=== PATIENT | male | born 1980 | race Caucasian/White ===

== ENCOUNTER 2017-10-14 11:34 | Observation (INO) | payer BC, SELFPAY ==
[2017-10-14 12:08] LABS: #Lymphocytes 0.5 thou/uL (1.20-3.40); #Monocytes 0.8 thou/uL (0.11-0.59); #Neutrophils 14.5 thou/uL (1.40-6.50); %Basophils 0.3 % (0.0-1.0); %Eosinophils 0.2 % (0.0-10.0); %Lymphocytes 3.1 % (21.0-51.0); %Monocytes 5.1 % (0.0-10.0); %Neutrophils 91.4 % (42.0-75.0); Hemoglobin 15.1 g/dL (14.0-18.0); Mean Corpuscular HGB CONC 33.7 g/dL (32.0-36.0); Mean Corpuscular Hemoglobin 32.5 pg (27.0-31.0); Mean Corpuscular Volume 96.4 fl (80.0-94.0); Mean Platelet Volume 8.5 fL (7.4-10.4); Platelet Count 218 thou/uL (130-400); RBC Distribution Width 11.7 % (11.5-14.5); Red Blood Cell (RBC) Count 4.64 mill/uL (4.70-6.10); White Blood Cell (WBC) Count 15.9 thou/uL (4.8-10.8)
[2017-10-14] MEDS ORDERED: Lorazepam 2 MG/ML VIAL ONE (12:18)
[2017-10-14 12:30] LABS: ALT (SGPT) 33 U/L (8-55); AST (SGOT) 24 U/L (5-34); Acetaminophen Less than 6.0 mcg/mL (10.0-30.0); Albumin 4.3 g/dL (3.5-5.0); Alcohol Less than 10 mg/dL (Less than 10); Alkaline Phosphatase 85 U/L (40-150); Anion Gap 19 mmol/L (10-20); BUN (Urea Nitrogen) 9 mg/dL (8.9-20.6); Bilirubin, Total 0.4 mg/dL (0.2-1.2); CK (CPK) 153 U/L (30-200); Calc. Creatinine Clearance 0 mL/min (70-130); Calcium 9.5 mg/dL (7.8-10.44); Carbon Dioxide 15 mmol/L (22-29); Chloride 107 mmol/L (98-107); Estimated GFR-MDRD 38; Globulin 3.3 g/dL (2.4-3.5); Glucose 207 mg/dL (70-105); Potassium 3.5 mmol/L (3.5-5.1); Protein, Total 7.6 g/dL (6.0-8.3); Salicylate Less than 8.0 mg/dL (15.0-30.0); Sodium 137 mmol/L (136-145)
[2017-10-14 12:33] LABS: CKMB 1.1 ng/mL (0-6.6)
[2017-10-14 12:37] LABS: Bilirubin Negative (Negative); Blood, Urine Small (Negative); Clarity CLOUDY (Clear); Glucose, Urine (Dipstick) Negative (Negative); Leukocyte Small (Negative); Nitrite Negative (Negative); Protein, Urine (Dipstick) 100 mg/dL (Neg-Trace); Specific Gravity, Urine 1.018 (1.002-1.036); Urobilinogen 0.2 mg/dL (0.2-1.0); pH, Urine 5.5 (5.0-9.0)
[2017-10-14 12:39] LABS: Troponin I 0.022 ng/mL (< 0.028)
[2017-10-14 12:48] LABS: Pathc Cast-AUWi Flag 10.46 (0-2.49)
[2017-10-14 12:52] LABS: Cocaine Metabolite Screen Detected (NotDetected); Medtox Reader # READER 1; Phencyclidine (PCP) Detected (NotDetected); THC/Cannabinoid Screen Detected (NotDetected)
[2017-10-14 12:53] LABS: Amphetamine Not Detected (NotDetected); Barbiturates Screen Not Detected (NotDetected); Benzodiazepine Screen Not Detected (NotDetected); Medtox Control Line Valid? VALID (VALID); Methadone Not Detected (NotDetected); Methamphetamine Detected (NotDetected); Opiate Screen Not Detected (NotDetected); Oxycodone Screen Not Detected (NotDetected); Tricyclic Screen Not Detected (NotDetected)
[2017-10-14 12:59] LABS: Bacteria/HPF 2+ HPF (None Seen); Hyaline Casts/LPF 4-6 HYALINE CAST LPF (0-3 Hyaline); Manual Microscopic Reviewed? No Path Casts Seen; Renal Epithelial None Seen HPF (0-3); Transitional Epithelial NONE SEEN HPF (0-3)
--- NOTE | 2017-10-14 14:15 | PDOC.FPRHP ---
- History of Present Illness Chief Complaint: drug ingestion History of Present Illness: 36 y/o with a history of polysubstance abuse brought in by EMS. He was acting wildly and was given medications for chemical restraint as he was felt to be a threat to himself. He is currently writhing around in bed, follows commands and nods his head to yes or no questions. He currently denies cp/sob/abd pain/n /v and shakes his head when I ask if anything else is bothering him. He is distractable and because of his intoxication a complete ROS in unable to be completed. Informant: girlfriend and mother - Allergies/Adverse Reactions Allergies Allergy/AdvReac Type Severity Reaction Status Date / Time No Known Allergies Allergy Unverified 10/14/17 14:16 - Home Medications Medication Instructions Recorded Confirmed Type No Known [No Known] 10/14/17 10/14/17 History - History PMHx: Denies PSHx: Denies FHx: Hypothyroidism, atrial fibrillation, prostate, colon, and lung cancer Social: Smokes >1 ppd for years, extensive alcohol and drug use - Review of Systems ROS unobtainable: due to mental status (acute intoxication) - Vital signs BP: 163/88 HR: 97 RR: 26 Tmax: 97.3 Pox: 97% on 2L Wt: 113.4 Kg - Physical Exam Constitutional: NAD, other (intoxicated, writhing in bed) HEENT: normocephalic and atraumatic, PERRLA, EOMI, conjunctiva clear, TM's clear and intact, MMM, other (negative battles or any sign of head trauma) Neck: supple, FROM, trachea midline, no LAD, no bruits Chest: no-tender to palpation, no lesions Heart: RRR, normal S1/S2, no murmurs/rubs/gallops, pulses present, no edema Lungs: CTAB, no respiratory distress, good air movement, no wheezing, no retractions, other (protecting airway) Abdomen: soft, non-tender, bowel sounds present, no masses/distention Musculoskeletal: normal structure, normal tone, ROM grossly normal Neurological: no focal deficit, CN II-XII intact, normal sensation (moves all 4 extremities to touch), DTRs 2+ Skin: no rash/lesions, good turgor, capillary refill <2 seconds Heme/Lymphatic: no unusual bruising or bleeding, no purpura, no petechia Psychiatric: other (intoxicated) FMR H&P: Results - Labs Result Diagrams: 10/14/17 11:58 10/14/17 11:58 Lab results: WBC 15.9 thou/uL (4.8-10.8) H 10/14/17 11:58 Hgb 15.1 g/dL (14.0-18.0) 10/14/17 11:58 Hct 44.7 % (42.0-52.0) 10/14/17 11:58 MCV 96.4 fl (80.0-94.0) H 10/14/17 11:58 Plt Count 218 thou/uL (130-400) 10/14/17 11:58 Neutrophils % 91.4 % (42.0-75.0) H 10/14/17 11:58 Sodium 137 mmol/L (136-145) 10/14/17 11:58 Potassium 3.5 mmol/L (3.5-5.1) 10/14/17 11:58 Chloride 107 mmol/L (98-107) 10/14/17 11:58 Carbon Dioxide 15 mmol/L (22-29) L 10/14/17 11:58 BUN 9 mg/dL (8.9-20.6) 10/14/17 11:58 Creatinine 2.00 mg/dL (0.6-1.3) H 10/14/17 11:58 Glucose 207 mg/dL (70-105) H 10/14/17 11:58 Calcium 9.5 mg/dL (7.8-10.44) 10/14/17 11:58 Total Bilirubin 0.4 mg/dL (0.2-1.2) 10/14/17 11:58 AST 24 U/L (5-34) 10/14/17 11:58 ALT 33 U/L (8-55) 10/14/17 11:58 Alkaline Phosphatase 85 U/L (40-150) 10/14/17 11:58 Creatine Kinase 153 U/L (30-200) 10/14/17 11:58 CK-MB (CK-2) 1.1 ng/mL (0-6.6) 10/14/17 11:58 Serum Total Protein 7.6 g/dL (6.0-8.3) 10/14/17 11:58 Albumin 4.3 g/dL (3.5-5.0) 10/14/17 11:58 Urine Ketones Negative mg/dL (Negative) 10/14/17 12:16 Urine Blood Small (Negative) H 10/14/17 12:16 Urine Nitrite Negative (Negative) 10/14/17 12:16 Ur Leukocyte Esterase Small (Negative) H 10/14/17 12:16 Urine RBC 11-20 HPF (0-3) H 10/14/17 12:16 Urine WBC 7-10 HPF (0-3) H 10/14/17 12:16 Ur Squamous Epith Cells 7-10 HPF (0-3) H 10/14/17 12:16 Urine Bacteria 2+ HPF (None Seen) H 10/14/17 12:16 - EKG Interpretation EKG: Sinus tachycardia without any acute st/t wave changes FMR H&P: A/P - Problem List (1) Acute encephalopathy Current Visit: Yes Status: Acute Code(s): G93.40 - ENCEPHALOPATHY, UNSPECIFIED Assessment and Plan: 2/2 polysubstance intoxication. Supportive care. Continue restraints until clinically sober and no longer a threat to self or others. BZD PRN. ASE protocol for alcohol withdrawal if inpatient. (2) Polysubstance abuse Current Visit: Yes Status: Chronic Code(s): F19.10 - OTHER PSYCHOACTIVE SUBSTANCE ABUSE, UNCOMPLICATED Assessment and Plan: marijauna, tobacco, alcohol, PCP, methamphetamine, cocaine. Neg ASA/apap. Supportive care. Will scholarship counselor cessation when clinically sober (3) Alcohol abuse Current Visit: Yes Status: Chronic Code(s): F10.10 - ALCOHOL ABUSE, UNCOMPLICATED Assessment and Plan: Will scholarship counselor cessation. ASE protocol if inpatient. (4) Leukocytosis Current Visit: Yes Status: Acute Code(s): D72.829 - ELEVATED WHITE BLOOD CELL COUNT, UNSPECIFIED Assessment and Plan: anticipate stress response. Will monitor for any s/s of infection. (5) Acute kidney injury Current Visit: Yes Status: Acute Code(s): N17.9 - ACUTE KIDNEY FAILURE, UNSPECIFIED Assessment and Plan: Likely prerenal + direct. Will hydrate, sent CK, recheck. (6) Hyperglycemia Current Visit: Yes Status: Acute Code(s): R73.9 - HYPERGLYCEMIA, UNSPECIFIED Assessment and Plan: Stress vs DM/preDM will send A1c and TSH (7) Tobacco abuse Current Visit: Yes Status: Acute Code(s): Z72.0 - TOBACCO USE Assessment and Plan: Will scholarship counselor cessation when clinically sober.
[2017-10-14] MEDS ORDERED: Ondansetron HCl/PF 4 MG/2 ML Vial IVP PRN (14:29)
[2017-10-14] MEDS ORDERED: Sodium Chloride 0.9% 1,000 ML IV SCH (14:30)
[2017-10-14] MEDS ORDERED: Lorazepam 2 MG/ML VIAL SLOW IVP PRN (14:33)
[2017-10-14] MEDS ORDERED: Famotidine/PF 20 mg/2ml Vial SLOW IVP SCH (21:00)
--- NOTE | 2017-11-11 15:05 | EKG ---
Test Reason : AMS Blood Pressure : / mmHG Vent. Rate : 119 BPM Atrial Rate : 119 BPM P-R Int : 120 ms QRS Dur : 090 ms QT Int : 334 ms P-R-T Axes : 043 038 053 degrees QTc Int : 469 ms Sinus tachycardia Possible Left atrial enlargement Borderline ECG Confirmed by PARAM CORTEZ ([id number]), proposal editor OSWALDO UMAÑA ([id number]) on 11/11/2017 3:04:22 PM Referred By: Confirmed By:PARAM CORTEZ
== END 2017-10-14 17:10 | disposition home or self-care (01) ==
LOC: ERS 11:34 → ERHOLD 14:05
PROVIDERS: ADMIT Student in an Organized Health Care Education/Training Program; ATTEND Student in an Organized Health Care Education/Training Program
DX: G93.40 Encephalopathy, unspecified (principal); F12.10 Cannabis abuse, uncomplicated; F10.10 Alcohol abuse, uncomplicated; F16.10 Hallucinogen abuse, uncomplicated; F15.10 Other stimulant abuse, uncomplicated; F14.10 Cocaine abuse, uncomplicated; D72.829 Elevated white blood cell count, unspecified; N17.9 Acute kidney failure, unspecified; R73.9 Hyperglycemia, unspecified; F17.210 Nicotine dependence, cigarettes, uncomplicated
CPT/HCPCS: 36415; 36416; 51701; 80053; 80306; 80307; 81003; 81015; 82010; 82553; 84484; 85025; 93005; 96361; 96365; 96375; J2060; J3411; J7050

== ENCOUNTER 2018-06-02 07:09 | Outpatient (CLI) | payer BC ==
--- NOTE | 2018-06-02 09:22 | MRI ---
MRI RIGHT KNEE WITHOUT CONTRAST: Date: 06/02/18 INDICATION: Right knee pain. FINDINGS: There is a complex, multidirectional tear involving the body, posterior junction, and posterior horn of the medial meniscus. There is slight medial extrusion of the meniscus. There is a discoid lateral meniscus with a horizontally oriented tear involving the body and posterior moiety of the lateral men iscus. The ACL, PCL, MCL, and LCLC are intact. There is mild subchondral edema involving the posterio r aspect of the medial tibial plateau which is nonspecific. The extensor mechanism is intact. There i s moderate joint effusion. IMPRESSION: 1. Medial and lateral meniscal tears. Discoid lateral meniscus. 2. Small area of subchondral edema involving the posterior medial tibial plateau may reflect reactiv e edema. 3. The ACL, PCL, MCL, and LCLC are intact. POS: [facility]
== END 2018-06-02 07:10 | disposition home or self-care (01) ==
LOC: BICMRI 07:09
PROVIDERS: ATTEND Orthopaedic Surgery
DX: M25.561 Pain in right knee (principal); S83.281A Other tear of lateral meniscus, current injury, right knee, initial encounter; S83.241A Other tear of medial meniscus, current injury, right knee, initial encounter; R60.0 Localized edema

== ENCOUNTER 2018-06-16 05:51 | Day surgery (SDC) | payer BC ==
[2018-06-15 15:15] VITALS: BMI 27.6
[2018-06-16] MEDS ORDERED: Fentanyl 100 MCG/2 ML VIAL ONE ×2 (07:49→09:44)
[2018-06-16] MEDS ORDERED: CEFAZOLIN 2 GM/50 ML BAG ONE (08:04)
[2018-06-16] MEDS ORDERED: Midazolam HCl 2 mg/2 ml Vial ONE (08:20)
[2018-06-16] MEDS ORDERED: Bupivacaine/Epinephrine 0.25% 30 ML VIAL ONE (08:48)
[2018-06-16] MEDS ORDERED: Lidocaine 1% (PF) 30 ML VIAL ONE (08:48)
[2018-06-16] MEDS ORDERED: HYDROcodone/Acetaminophen 5/325 mg Tablet ONE (10:14)
[2018-06-16] MEDS ORDERED: Dexamethasone 20 MG/5 ML VIAL ONE (11:25)
[2018-06-16] MEDS ORDERED: Ondansetron PF 4 MG/2 ML Vial ONE (11:25)
[2018-06-16] MEDS ORDERED: Ketorolac Tromethamine 30 MG/ML VIAL ONE (11:25)
[2018-06-16] MEDS ORDERED: PROPOFOL 200 MG/20 ML VIAL ONE (11:25)
[2018-06-16] MEDS ORDERED: Lidocaine 1% PF 5 ML VIAL ONE (11:25)
--- NOTE | 2018-06-22 12:16 | OP ---
DATE OF PROCEDURE: 06/16/2018 PREOPERATIVE DIAGNOSES: 1. Right discoid lateral meniscus tear. 2. Left medial meniscus tear. POSTOPERATIVE DIAGNOSES: 1. Right lateral discoid meniscus tear. 2. Bucket-handle medial meniscus tear. PROCEDURES PERFORMED: Lateral discoid and a medial subtotal meniscectomy of a bucket-handle medial meniscus tear. ANESTHESIA: This patient received LMA. He received 25 mL of Marcaine 0.25% with epi preprocedure, which was washed out and 20 mL of lidocaine 1% postprocedure, which was left in the joint. ANTIBIOTICS: Ancef 2 g. TOURNIQUET TIME: 23 minutes at 300 mmHg. COMPLICATIONS: None. INDICATIONS FOR PROCEDURE: Mr. Killian is a 37-year-old male who presented with left knee pain that was severe. He has popping. He has had a repair 3 months ago. Had MRI evidence of medial and lateral meniscus tear. I have discussed with the patient the risks and benefits of medial and lateral meniscectomy, pain, scar, bleeding, infection, damage to vital structures, arthritis, decreased range of motion and strength, need for further surgeries, and loss of life or limb, and he understood the risks and benefits. DESCRIPTION OF PROCEDURE: Time-out was performed, and the patient's right lower extremity was the operative site based on site, consent, and markings. An anterolateral portal was placed, and anteromedial portal was placed. The fat pad was excised. I then started my procedure. I medially saw the bucket-handle medial meniscus tear, which we reduced. We saw the ACL and PCL, which were intact. We looked at the medial and lateral gutters. There were no patellofemoral defects in the lateral compartment except discoid meniscus with an oblique tear, which we debrided back to stable remnant and probed the discoid meniscus to look for any other tears, which I actually could not see. At the completion of this, I removed our medial meniscus, used our arthroscopic scissors to cut posteriorly and then cut anteriorly and removed the meniscus and debrided the remnant of the meniscus to stable remnant, both posteriorly and anteriorly. With subtotal meniscectomy, I looked and on the posterior medial aspect of the femur, there was a small near full-thickness cartilage defect, otherwise, there were no other tears. After completing my scope, I washed, closed after taking pictures of the meniscus. I closed with nylon. I injected 20 mL of lidocaine at the end of the procedure. I had injected Marcaine at the beginning of the procedure, which was washed out during the procedure. I closed with 3-0 nylon. The patient should weightbear as tolerated. He will follow up in clinic in 2 weeks. Job ID: [id number] MTDD
== END 2018-06-16 11:25 | disposition home or self-care (01) ==
LOC: SDC 05:51
PROVIDERS: ATTEND Orthopaedic Surgery
PROC: 0SBC4ZZ Excision of Right Knee Joint, Percutaneous Endoscopic Approach (ICD-10-PCS; principal; 2018-06-16)
DX: S83.211A Bucket-handle tear of medial meniscus, current injury, right knee, initial encounter (principal); S83.281A Other tear of lateral meniscus, current injury, right knee, initial encounter; F17.200 Nicotine dependence, unspecified, uncomplicated
CPT/HCPCS: 96374; G8978-GP-CL; G8979-GP-CL; G8980-GP-CL; J0131; J1100; J1885; J2001; J2250; J2405; J2704; J3010

== ENCOUNTER 2018-08-03 00:17 | Inpatient (IN) | payer BC ==
[2018-08-03 00:36] LABS: Lavender RECEIVED; Red RECEIVED
[2018-08-03 00:56] LABS: Actual Bicarbonate (HCO3a) 22.7 mEq/L (22-28); Analyzer IN Cardio ER; Base Excess (BEa) -4.5 mEq/L (-2.0 to +3.0); CO2 Tension 50.2 mmHg (35.0-45.0); Calcium, Ionized 1.08 mmol/L (1.12-1.30); Carboxyhemoglobin (COHb) 0.7 gm% (0.0-3.0); O2 Tension (PaO2) 75.7 mmHg (80.0-100.0); Potassium - ABG Lab 3.34 mmol/L (3.70-5.30); pH, Arterial 7.27 (7.35-7.45)
[2018-08-03 00:57] LABS: Puncture Site LRA
[2018-08-03] MEDS ORDERED: Fentanyl 100 MCG/2 ML VIAL ONE ×2 (00:57→01:44)
[2018-08-03] MEDS ORDERED: Ondansetron PF 4 MG/2 ML Vial IVP PRN (01:48)
[2018-08-03] MEDS ORDERED: Ventilator Sedation Protocol 1 EACH FS SCH (01:52)
[2018-08-03] MEDS ORDERED: fentaNYL Citrate/PF 2,000 MCG in Sodium Chloride 0.9% 60 ML IV SCH (01:57)
[2018-08-03] MEDS ORDERED: Propofol BOLUS 1,000 MG/100 ML VIAL IV PRN (01:57)
[2018-08-03] MEDS ORDERED: Lorazepam 2 MG/ML VIAL SLOW IVP PRN (01:57)
[2018-08-03] MEDS ORDERED: Fentanyl BOLUS 250 ML IVPB PRN (01:57)
[2018-08-03] MEDS ORDERED: Morphine 2 MG/ML SYRINGE SLOW IVP PRN (01:57)
[2018-08-03] MEDS ORDERED: DISCONTINUE PREVIOUS NARCOTIC PAIN MEDICATIONS AND BENZODIAZEPINES FS SCH (01:57)
[2018-08-03 02:15] VITALS: BMI 29.8
[2018-08-03] MEDS: Dextrose 5 % And 0.9 % NaCl 1,000 ML IV SCH ×2 (02:57→10:22)
[2018-08-03] MEDS: Propofol 1,000 MG/100 ML VIAL IV PRN ×2 (03:08→10:21)
[2018-08-03 05:54] LABS: #Eosinphils 0.1 thou/uL (0.0-0.7); #Lymphocytes 1.3 thou/uL (1.20-3.40); #Monocytes 0.8 thou/uL (0.11-0.59); #Neutrophils 9.4 thou/uL (1.40-6.50); %Basophils 0.1 % (0.0-1.0); %Eosinophils 0.8 % (0.0-10.0); %Monocytes 6.9 % (0.0-10.0); %Neutrophils 81.2 % (42.0-75.0); Hemoglobin 12.1 g/dL (14.0-18.0); Mean Corpuscular HGB CONC 33.5 g/dL (32.0-36.0); Mean Corpuscular Hemoglobin 32.6 pg (27.0-31.0); Mean Corpuscular Volume 97.3 fL (78.0-98.0); Mean Platelet Volume 8.8 fL (7.4-10.4); Platelet Count 156 thou/uL (130-400); RBC Distribution Width 11.7 % (11.5-14.5); Red Blood Cell (RBC) Count 3.73 mill/uL (4.70-6.10); White Blood Cell (WBC) Count 11.6 thou/uL (4.8-10.8)
[2018-08-03 06:12] LABS: Anion Gap 11 mmol/L (10-20); BUN (Urea Nitrogen) 10 mg/dL (8.9-20.6); Calc. Creatinine Clearance 145 mL/min (70-130); Carbon Dioxide 21 mmol/L (22-29); Chloride 114 mmol/L (98-107); Estimated GFR-MDRD 89; Glucose 103 mg/dL (70-105); Sodium 142 mmol/L (136-145)
[2018-08-03 07:14] LABS: Actual Bicarbonate (HCO3a) 20.9 mEq/L (22-28); Base Excess (BEa) -3.6 mEq/L (-2.0 to +3.0); Calcium, Ionized 1.11 mmol/L (1.12-1.30); Carboxyhemoglobin (COHb) 0.7 gm% (0.0-3.0); Hemoglobin (Hb) 12.3 g/dL (14.0-18.0); O2 Tension (PaO2) 222.5 mmHg (80.0-100.0); Potassium - ABG Lab 3.85 mmol/L (3.70-5.30); pH, Arterial 7.38 (7.35-7.45)
[2018-08-03 07:20] LABS: Puncture Site L.B.
[2018-08-03] MEDS ORDERED: Famotidine/PF 20 mg/2ml Vial SLOW IVP SCH (09:00)
[2018-08-03] MEDS ORDERED: Enoxaparin Sodium 40 MG/0.4 ML SYRINGE SC SCH (09:00)
[2018-08-03 12:49] VITALS: TEMP 98
[2018-08-03 13:23] VITALS: BP 123/93
--- NOTE | 2018-08-03 17:43 | CON ---
DATE OF CONSULTATION: 08/03/2018 PULMONOLOGY CONSULT REASON FOR CONSULTATION: The patient is intubated on ventilator in ICU. HISTORY OF PRESENT ILLNESS: This is a 37-year-old male who was transferred from [place] ED. The patient reportedly has a history of drug abuse and was acting strangely for the last couple of days. He was starting to hallucinate and became destructive, so the mother got suspicious that he was using drugs again and called EMS to take him to [place] [facility]. On arrival to the ED at [place], the patient was extremely combative and did not respond to sedatives, thus he required intubation for treatment. Of note, the patient was given Haldol, rocuronium, ketamine, Versed , and succinylcholine at the outside ED. Chest x-ray was performed at that outside ED , which did confirm endotracheal tube placement. Drug screen was positive for marijuana, PCP, and methamphetamines. The patient is sedated and intubated on ventilator. Today, he is on propofol and Versed, although he is arousable and will follow commands. He is also having spontaneous breaths on mechanical ventilation. The patient does appear slightly agitated due to tube. However, after talking to the patient, he did calm down. He understands that in order to get the tube out of his mouth, he needs to be able to breathe successfully on his own and come off the sedation completely. There were no significant overnight events. The patient's vital signs remained stable and he remained afebrile. ROS difficult to obtain secondary to the patient being slightly sedated and on mechanical ventilation. PHYSICAL EXAMINATION: VITAL SIGNS: Blood pressure 127/88, pulse 63, respiratory rate 18, and O2 saturation 100% on mechanical ventilation. GENERAL: The patient is mildly sedated, but arousable and following commands. He is able to lift all extremities and lift his head from the bed indicating good effort and good strength. CARDIOVASCULAR: Regular rate and rhythm. No murmurs, gallops, or rubs. RESPIRATORY: Clear to auscultation bilaterally. The patient is taking spontaneous breaths on the ventilator. ABDOMEN: Nondistended, nontender. Equal bowel sounds throughout. EXTREMITIES: No edema. Pulses present bilaterally. LABORATORY DATA: CBC showed white blood cell count of 11.6, hemoglobin 12.1, hematocrit 36.3, platelet count of 156. ABG this morning showed pH 7.38, pCO2 of 36, and PO2 of 222.5. CMP showed sodium 142, potassium of 4, chloride 114, bicarb 21, BUN 10, creatinine 0.95, and glucose of 103. IMAGING: There were no images done at this facility. A report of a chest x- ray from [place] ED did show that endotracheal tube was in proper positioning. The chest x-ray also showed small nonspecific pulmonary patchy density in the left infrahilar region. It is uncertain whether this is atelectasis or aspiration pneumonia. CT of the brain was performed, which showed no acute intracranial findings. Cervical spine CT was performed which showed no evidence of acute fracture or acute traumatic subluxation. There is hyperplasia of bilateral palatine tonsils resulting in significant narrowing of the oropharyngeal airway. ASSESSMENT: 1. Acute hypoxic hypercapnic respiratory failure secondary to polysubstance abuse. 2. Polysubstance abuse including methamphetamines, PCP, and marijuana. 3. Metabolic encephalopathy secondary to polysubstance abuse. 4. Leukocytosis. 5. Anemia. PLAN: 1. The patient is following commands and appears to have good strength and control of secretions. He is taking breaths spontaneously on mechanical ventilator. FiO2 was decreased to 27 with PEEP of 5, and the patient was maintaining O2 saturation. The patient will be taken off the Versed and propofol, and a trial of extubation will be attempted. Of note, patient's pH improved from 7.27 to 7.38, and his hypercapnia and hypoxia did resolve as of this morning. If extubation is successful, likely transition the patient to p.o. If extubation is unsuccessful, keep the patient on IV fluids and we will consider switching to D5 half-normal saline, as chloride is trending up and bicarb is mildly low. The patient did have an acute kidney injury that does seem to be resolved after fluid resuscitation. He also had some elevated creatine kinase at 818 initially, which is likely improved with fluid hydration as well. Leukocytosis is profound at 36.2, which downtrended to 11.6 without any antibiotics. The patient also remained afebrile, thus his leukocytosis is presumed to be secondary to a leukemoid or stress reaction versus a dehydrated state. If the patient does remain agitated and combative after extubation, we will use Precedex for mild sedation. This was discussed with the nursing staff. 2. We will continue to follow the patient during the course of his stay. Critical Care consultation time of 30 minutes. Job ID: [id number] MTDD
--- NOTE | 2018-08-04 05:34 | DIS ---
DATE OF ADMISSION: 08/03/2018 DATE OF DISCHARGE: 08/03/2018 DISCHARGE DIAGNOSES: 1. Acute hypoxic hypercapnic respiratory failure secondary to polysubstance abuse. 2. Polysubstance abuse including methamphetamines, PCP, and marijuana. 3. Acute toxic metabolic encephalopathy secondary to polysubstance abuse. 4. Leukocytosis. 5. Noncompliance. CONSULTATIONS: Pulmonology Critical Care Service. PERTINENT LAB AND X-RAY FINDINGS: Basic metabolic profile within normal limits. CBC showed a white blood cell count of 11.6, hemoglobin 12, hematocrit 36, platelet count 156, with 81% neutrophils. CT of the brain without contrast dated 08/02/2018 showed no acute intracranial process. CT of the cervical spine dated 08/02/2018 showed no evidence for acute fracture or subluxation. Portable chest x-ray dated 08/02/2018 showed endotracheal tube in appropriate positioning. Bilateral subsegmental atelectasis. HOSPITAL COURSE: This patient was initially admitted to the Critical Care Unit after presenting and transferred from [place] [facility] with polysubstance ingestion including methamphetamines, PCP and marijuana. The patient apparently was initially extremely combative, unresponsive to sedatives, and required intubation with complete sedation. The patient remained on mechanical ventilation until extubation approximately 1300 hours on 08/03/2018. The patient began to escalate and become noncompliant with directions from the hospital staff and nurse at the bedside. The patient decided that he wanted to leave against medical advice and signed out AMA. Job ID: [id number]
--- NOTE | 2018-08-05 13:00 | HP ---
PRIMARY CARE DOCTOR: Justine Tafoya MD. TIME OF EVALUATION: 1:00 am. CODE STATUS: Full code. CHIEF COMPLAINT: Change in mental status and hallucination. HISTORY OF PRESENT ILLNESS: Information is being gathered from the ER staff. The patient is intubated and sedated. No family members in the room during my examination. This is a 37-year-old male patient with past medical history of drug abuse. The patient came to the hospital after being reported that the patient was having hallucination, he was talking to [place] with changes in the eyes. Mother reported there was suspicion for drug use, he was taken to [place], there he was extremely combative, not responded to sedative and required intubation. Symptoms were likely triggered by drugs. The patient tested positive for marijuana, PCP, and methamphetamine. During my examination, the patient is stable. Symptoms were severe. Now, he is resting comfortable under sedation and intubation. Agitation has been controlled. REVIEW OF SYSTEMS: Unable to obtain as the patient was intubated and sedated. PAST MEDICAL HISTORY: History of drug abuse. No other ones reported. ALLERGIES: NO ALLERGIES. UNABLE TO GATHER ANY INFORMATION, REPORTEDLY NEGATIVE. MEDICATIONS: Unable to obtain. PHYSICAL EXAMINATION: VITAL SIGNS: On presentation, blood pressure 137/78 with heart rate 96, respiratory rate was 14, temperature 97.9, oxygen saturation 100% on the vent. GENERAL APPEARANCE: The patient is intubated, sedated. HEENT: Normal conjunctivae. Moist oral mucosa. Anicteric. No JVD. RESPIRATORY: Bilateral air entry. No rales, no wheezing. Symmetric expansion. CARDIOVASCULAR: Normal rate, regular rhythm. No murmurs or gallops. No edema. The patient is mildly hypertensive occasionally. ABDOMEN: Soft. Normal bowel sounds. MUSCULOSKELETAL: Baseline range of motion and strength. No tenderness. SKIN: Warm, intact. No pallor. No rash. No redness. Peripheral pulses are present. Capillary refill seems to be intact. NEURO: No evidence of any new focal weakness. The patient is intubated, sedated, unable to fully explore. PSYCH: Unable to explore. DIAGNOSTIC STUDIES: EKG was reviewed. The patient has a normal sinus rhythm. No evidence of acute ischemic event. Chest x-ray was reviewed. The patient has endotracheal tube placement correctly, new central bilateral subsegmental atelectasis, left infrahilar density as previously mentioned, gaseous gastric distention. Cervical spine CT, no evidence of acute fracture or acute trauma subluxation, hyperplasia of bilateral palatine tonsils resulting in significant narrowing of the oropharyngeal airway. Brain CT was done. No acute intracranial findings. Labs were reviewed. On presentation, ABG, pH 7.27, pCO2 is 15, pO2 is 75. This was done on SIMV. He has a mechanical rate of 14, oxygen pressure 60, tidal volume 500, pressure support 10, PEEP 5. White count 36.2, RBC 4.67, hemoglobin 15.3, MCV 98.4, platelet count 331. Chemistry was reviewed. The patient has sodium of 141, potassium 3.9, chloride 104, carbon dioxide 17, anion gap 24, BUN 14, GFR 82 with creatinine 1.64, glucose 239. CK 818. Troponin was negative. Urine was positive for some mild rbc's in urine, mildly elevated white count 7 to 10. Toxicology was positive for phencyclidine, amphetamines, methamphetamines, cannabinoids. ASSESSMENT AND PLAN: The patient was placed in the hospital with the following medical problems: 1. Critical care time, I spent more than 40 minutes of bedside assessment, medication reconciliation, initial evaluation of the patient stabilization, and review and elaboration of records. 2. Chronic kidney disease. The patient presented with a creatinine of 1.6. In previous admission, the patient has creatinine of 2.0. Monitor kidney function. We will adjust treatment as needed. 3. Hyperglycemia: No reported history of diabetes. We will monitor. We will adjust treatment as needed. 4. Mildly elevated CK, this is likely secondary to agitation and intoxication with the PCP. We will monitor. We will adjust treatment as needed. 5. He has acute encephalopathy secondary to drug overdose. The patient is needing intubation and sedation due to psychomotor agitation. We will treat with supportive care, likely to be able to be extubated later on today. 6. Leukocytosis of 36.2. No evidence of infection at this point. We will monitor. We will adjust treatment as needed. 7. Deep vein thrombosis prophylaxis. Job ID: [id number]
== END 2018-08-03 15:35 | disposition left against medical advice (07) | DRG 894 ==
LOC: ERS 00:17 → CCU 01:55
PROVIDERS: ADMIT Hospitalist; ATTEND Hospitalist
PROC: 5A1935Z Respiratory Ventilation, Less than 24 Consecutive Hours (ICD-10-PCS; principal; 2018-08-03)
DX: F19.10 Other psychoactive substance abuse, uncomplicated (principal); J96.01 Acute respiratory failure with hypoxia; G92 Toxic encephalopathy; J96.02 Acute respiratory failure with hypercapnia; N17.9 Acute kidney failure, unspecified; F12.10 Cannabis abuse, uncomplicated; F15.10 Other stimulant abuse, uncomplicated; D72.829 Elevated white blood cell count, unspecified; D64.9 Anemia, unspecified; Z91.19 Patient's noncompliance with other medical treatment and regimen
CPT/HCPCS: 36415; 36416; 80048; 82805; 85025; 90471; 90686; 90732; 94003; 94760; 96365; 96375; 96376; G0008; G0009; J1650; J2704; J3010; S0028